=== PATIENT | female | born 1955 | race Caucasian/White ===

== ENCOUNTER 2019-12-10 21:18 | Emergency (ER) | payer MEDICARE, OTHER ==
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
[2019-12-11 02:14] VITALS: BP 178/74; PULSE 75
--- NOTE | 2019-12-11 07:46 | CR ---
[id number] RAD/RAD Knee Left 3V EXAM: RAD Knee Left 3V INDICATION: LEFT KNEE INJURY COMPARISON: October 05, 2011. DISCUSSION: Prepatellar soft tissue swelling. Mild to moderate patellofemoral and mild lateral compartment osteoarthritis. No acute fracture, joint effusion or dislocation is identified. IMPRESSION: 1. Prepatellar soft tissue swelling. No fracture is identified. Pedro Rowe MD 12/11/19 0745 Thank you for allowing us to participate in the care of your patient.
== END 2019-12-10 23:24 | disposition home or self-care (01) ==
LOC: VM.ED 21:18
DX: S80.02XA Contusion of left knee, initial encounter (principal); I10 Essential (primary) hypertension; Z88.5 Allergy status to narcotic agent; Z88.0 Allergy status to penicillin; Z88.2 Allergy status to sulfonamides; Z79.82 Long term (current) use of aspirin; Z79.899 Other long term (current) drug therapy; W19.XXXA Unspecified fall, initial encounter
CPT/HCPCS: 73562-LT; 99283; 99283-25

== ENCOUNTER 2020-01-23 07:28 | Day surgery (SDC) | payer MEDICARE, OTHER ==
[~2020-01-23 07:28] MED LIST: Lactated Ringers 1,000 ML IV SCH
[2020-01-23] MEDS ORDERED: Propofol 200 MG/20 ML SDV ONE ×3 (08:49→09:59)
[2020-01-23] MEDS ORDERED: Midazolam 1 MG/ML 2 ML SDV ONE (08:49)
[2020-01-23] MEDS ORDERED: fentaNYL 100 MCG/2 ML SDV ONE (08:49)
[2020-01-23 10:41] VITALS: BP 142/48; PULSE 81
--- NOTE | 2020-01-23 12:29 | OR ---
PREOPERATIVE DIAGNOSES: 1. Screening colonoscopy. 2. History of colon polyps. POSTOPERATIVE DIAGNOSIS: Colon polyps. PROCEDURE PERFORMED: Total flexible colonoscopy with biopsies. ANESTHESIA: MAC anesthesia. COMPLICATIONS: None apparent. BLOOD LOSS: Minimal. FINDINGS: 1. Sigmoid colon polyp, 4 mm, hot snare. 2. Cecal polyps x3, 5 mm/4 mm/2 mm, hot snare. 3. Ascending colon polyps x2, 2 mm/3 mm, cold forceps. 4. Splenic flexure polyp, 2 mm, cold forceps. 5. Sigmoid polyp, 4 mm, hot snare. START TIME: 0915. CECUM TIME: 0929. STOP TIME: 0956. BOWEL PREP: [place] class 3. INDICATION FOR PROCEDURE: Ms. Hernandez is a 64-year-old female who is here for a screening colonoscopy. Her last 1 was somewhere around 7 to 10 years ago. She did have polyps at that time. She currently denies bloody and dark black stools, and denies a family history of colon cancer. DETAILS OF PROCEDURE: After informed consent was obtained, the patient was brought to the procedure room, placed in left lateral decubitus position. MAC anesthesia was induced by Anesthesia colleagues. The colonoscope was introduced into the rectum and advanced all the way to the cecum. The appendiceal orifice and ileocecal valve were photographed. The colonoscope was then slowly withdrawn. No pathology was identified except for what is mentioned in the above findings section. A retroflexed view was obtained. She tolerated the procedure well and was awoken from MAC anesthesia by Anesthesia colleagues without incident. PATHOLOGY: A) Colon, sigmoid polyp Tubular adenoma B) Colon, cecal polyps x3 Tubular adenomas C) Colon, ascending polyps x3 Tubular adenomas D) Colon, splenic flexure polyp Tubular adenoma C) Colon, sigmoid polyp Tubular adenoma Recommend repeat screening colonoscopy in 3 years. RKM: 01/23/2020 10:16:11 MODL: 01/23/2020 10:42:38 /[id number] ARSLAN
--- NOTE | 2020-02-03 14:37 | LETTER ---
02/03/2020 RE: MANDY MEY VENCES : 1955 Mandy Vences [address] [place] [id number] Dear David: I write to inform you of the pathology results from your recent colonoscopy. You had 9 tubular adenomas. A tubular adenoma is a polyp which does not contain cancer, but it can become cancer which is why we removed them. Due to the large number of polyps, you will need a repeat screening colonoscopy in 3 years. Warmest regards,
== END 2020-01-23 10:40 | disposition home or self-care (01) ==
LOC: VM.SDS 07:28
PROVIDERS: ATTEND Student in an Organized Health Care Education/Training Program
DX: Z12.11 Encounter for screening for malignant neoplasm of colon (principal); D12.5 Benign neoplasm of sigmoid colon; D12.0 Benign neoplasm of cecum; D12.3 Benign neoplasm of transverse colon; D12.2 Benign neoplasm of ascending colon; F41.9 Anxiety disorder, unspecified; F32.9 Major depressive disorder, single episode, unspecified; I10 Essential (primary) hypertension; E66.9 Obesity, unspecified; E11.9 Type 2 diabetes mellitus without complications; F17.210 Nicotine dependence, cigarettes, uncomplicated; Z01.812 Encounter for preprocedural laboratory examination; Z20.828 Contact with and (suspected) exposure to other viral communicable diseases; Z79.899 Other long term (current) drug therapy; Z88.5 Allergy status to narcotic agent; Z88.0 Allergy status to penicillin; Z79.82 Long term (current) use of aspirin; Z88.2 Allergy status to sulfonamides; Z98.890 Other specified postprocedural states; Z90.49 Acquired absence of other specified parts of digestive tract; Z68.26 Body mass index [BMI] 26.0-26.9, adult
CPT/HCPCS: 00811; 88305; J2250; J2704; J3010; J7120; U0002

== ENCOUNTER 2020-10-11 12:18 | Emergency (ER) | payer MEDICARE, OTHER ==
[2020-10-11] MEDS ORDERED: methylPREDNISolone Sodium Succinate 125 MG/2 ML SDV IVPUSH ONE (12:28)
[2020-10-11] MEDS ORDERED: diphenhydrAMINE 50 MG/ML SDV IVPUSH ONE (12:29)
[2020-10-11] MEDS ORDERED: Famotidine 20 MG/2 ML SDV IVPUSH ONE (12:29)
[2020-10-11] MEDS ORDERED: Sodium Chloride 0.9% 10 ML Syringe FLUSH PRN (12:30)
[2020-10-11] MEDS ORDERED: EPINEPHrine 1 MG/1 ML Amp IM ONE (12:38)
[2020-10-11 12:57] VITALS: BP 161/46; PULSE 78
--- NOTE | 2020-10-11 14:59 | EDM.PDOC ---
ED HPI GENERAL MEDICAL PROBLEM - General Chief Complaint: Bite:Animal, Insect Stated Complaint: BEE STING Time Seen by Provider: 10/11/20 12:25 Source of Information: Reports: Patient History Limitations: Reports: No Limitations - History of Present Illness INITIAL COMMENTS - FREE TEXT/NARRATIVE: Pt. states that she was stung by a bee or wasp yesterday at about 4 PM. She states that gradually she has noticed increased swelling, erythema, and discomfort to her face and neck. She denies any shortness of breath. She denies any stridor. No troubles breathing or swallowing. Pt. states that she has an established history of allergies to bee stings in the past. She has never had an actual anaphylactic reaction, but has had some delayed reaction to stings. Face/Facial Pain Score (Numeric/FACES): 8 - Related Data Allergies Allergy/AdvReac Type Severity Reaction Status Date / Time codeine Allergy Difficulty Verified 10/11/20 12:51 Breathing Penicillins Allergy Hives Verified 10/11/20 12:51 Sulfa (Sulfonamide Allergy Difficulty Verified 10/11/20 12:51 Antibiotics) Breathing Home Meds: Home Meds Alendronate Sodium [Fosamax] 70 mg PO Q7D 03/03/15 [History] Aspirin 81 mg PO BEDTIME 03/03/15 [History] Multivitamin [Daily Multiple Vitamin] 1 tab PO DAILY 03/03/15 [History] tiZANidine [Zanaflex] 2 - 4 mg PO BEDTIME 03/03/15 [History] Calcium Citrate/Vitamin D3 [Calcium Citrate - Vit D Caplet] 1 each PO BID 01/09/20 [History] Escitalopram Oxalate [Lexapro] 10 mg PO DAILY 01/09/20 [History] Ferrous Sulfate [Iron] 325 mg PO ASDIRECTED 01/09/20 [History] amLODIPine Besylate [Norvasc] 2.5 mg PO DAILY 01/09/20 [History] busPIRone [Buspar] 10 mg PO BID 01/09/20 [History] lisinopriL [Lisinopril] 40 mg PO DAILY 01/09/20 [History] Past Medical History Cardiovascular History: Reports: Hypertension Musculoskeletal History: Reports: Arthritis, Back Pain, Chronic, Osteoporosis, Other (See Below) Other Musculoskeletal History: osteoarthritis of spine, radicular pain of thoracic region Neurological History: Reports: Other (See Below) Other Neuro History: spinal stenosis, lumbar region; thorasic radicular pain Psychiatric History: Reports: Depression Endocrine/Metabolic History: Reports: Obesity/BMI 30+, Other (See Below) Other Endocrine/Metabolic History: starvation ketoacidosis Hematologic History: Reports: B12 Deficiency, Other (See Below) Other Hematologic History: starvation ketoacidosis Dermatologic History: Reports: Urticaria - Past Surgical History HEENT Surgical History: Reports: Tonsillectomy GI Surgical History: Reports: Appendectomy, Bariatric Procedure, Cholecystectomy, Colonoscopy, EGD, Hernia Repair/Other, Other (See Below) Other GI Surgeries/Procedures: abdominoplasty, cosmetic surgery arms and tummy Female Surgical History: Reports: Breast Reduction, Hysterectomy Neurological Surgical History: Reports: C-Spine, Lumbar Spine Musculoskeletal Surgical History: Reports: Other (See Below) Other Musculoskeletal Surgeries/Procedures:: Fusion of thoracic, cervical, and lumbar spine, excision foot mass bone spur Social & Family History - Family History Family Medical History: No Pertinent Family History - Tobacco Use Tobacco Use Status *Q: Current Some Day Tobacco User Years of Tobacco use: 40 Packs/Tins Daily: 0.3 ED ROS GENERAL - Review of Systems Review Of Systems: Comprehensive ROS is negative, except as noted in HPI. ED EXAM, ANIMAL BITE - Physical Exam Exam: See Below Exam Limited By: No Limitations General Appearance: Alert, WD/WN, No Apparent Distress Throat/Mouth: Normal Lips, Normal Teeth, Normal Oropharynx, Normal Voice, No Airway Compromise, Other (mild facial erythema noted.) Neck: Supple, Other (Erythema noted to anterior neck and lower jaw). No: Lymphadenopathy (L), Lymphadenopathy (R) Respiratory/Chest: No Respiratory Distress, Lungs Clear, Normal Breath Sounds, No Accessory Muscle Use, Chest Non-Tender Cardiovascular: Normal Peripheral Pulses, Regular Rate, Rhythm, No Edema, No Gallop, No JVD, No Murmur, No Rub Course - Vital Signs Last Recorded V/S: Last Vital Signs Temp 37.0 C 10/11/20 12:20 Pulse 78 10/11/20 12:20 Resp 16 10/11/20 12:20 BP 161/46 H 10/11/20 12:20 Pulse Ox 100 10/11/20 12:20 - Orders/Labs/Meds Orders: Active Orders 24 hr Category Date Time Status Peripheral IV Insertion Adult [OM.PC] Routine Oth 10/11/20 12:30 Ordered Meds: Medications Discontinued Medications Generic Name Dose Route Start Last Admin Trade Name Tal PRN Reason Stop Dose Admin Diphenhydramine HCl 50 mg 10/11/20 12:29 10/11/20 12:39 Diphenhydramine 50 Mg/Ml Sdv IVPUSH 10/11/20 12:30 50 mg ONETIME ONE Administration Epinephrine HCl 0.5 mg 10/11/20 12:38 10/11/20 12:25 Epinephrine 1 Mg/1 Ml Amp IM 10/11/20 12:39 0.5 mg ONETIME ONE Administration Famotidine 20 mg 10/11/20 12:29 10/11/20 12:39 Famotidine 20 Mg/2 Ml Sdv IVPUSH 10/11/20 12:30 20 mg ONETIME ONE Administration Methylprednisolone Sodium Succinate 125 mg 10/11/20 12:28 10/11/20 12:39 Methylprednisolone Sodium Succinate 125 Mg/2 Ml Sdv IVPUSH 10/11/20 12:29 125 mg ONETIME ONE Administration Sodium Chloride 10 ml 10/11/20 12:30 Sodium Chloride 0.9% 10 Ml Syringe FLUSH ASDIRECTED PRN Keep Vein Open - Re-Assessments/Exams Free Text/Narrative Re-Assessment/Exam: 10/11/20 15:00 Pt. reported significant improvement after receiving SQ epi and benadryl, solu medrol, and pepcid IV. She was observed. Erythema did start to improve. She remained stable in my care in ER. Departure - Departure Time of Disposition: 13:45 Disposition: Home, Self-Care 01 Clinical Impression: Allergic reaction - Discharge Information Instructions: Allergies, Adult, [id number], Prednisone tablets Referrals: Jonna Delaney MD [Primary Care Provider] - Forms: ED Department Discharge Additional Instructions: Prednisone 20mg 2 tabs daily for 7 days Benadryl 25mg 2 tabs every 4-6 hours as needed for throat itching/irritation. This may make you sleepy, so use caution operating machinery. I did give you a script for an epi pen as well, due to the severity of this reaction. Recheck in clinic in 5-7 days. Sepsis Event Note (ED) - Evaluation Sepsis Screening Result: No Definite Risk - Focused Exam Vital Signs: Vital Signs Temp Pulse Resp BP Pulse Ox 10/11/20 12:20 37.0 C 78 16 161/46 H 100 - Problem List Review Problem List Initiated/Reviewed/Updated: Yes - My Orders Last 24 Hours: My Active Orders 10/11/20 12:30 Peripheral IV Insertion Adult [OM.PC] Routine - Assessment/Plan Last 24 Hours: My Active Orders 10/11/20 12:30 Peripheral IV Insertion Adult [OM.PC] Routine Plan: Prednisone 20mg 2 tabs daily for 7 days Benadryl 25mg 2 tabs every 4-6 hours as needed for throat itching/irritation. This may make you sleepy, so use caution operating machinery. I did give you a script for an epi pen as well, due to the severity of this reaction. Recheck in clinic in 5-7 days.
== END 2020-10-11 13:10 | disposition home or self-care (01) ==
LOC: VM.ED 12:18
DX: T63.441A Toxic effect of venom of bees, accidental (unintentional), initial encounter (principal); I10 Essential (primary) hypertension; E66.9 Obesity, unspecified; Z68.21 Body mass index [BMI] 21.0-21.9, adult; Z79.82 Long term (current) use of aspirin; Z72.0 Tobacco use; Z88.5 Allergy status to narcotic agent; Z88.0 Allergy status to penicillin; Z88.2 Allergy status to sulfonamides; Z79.899 Other long term (current) drug therapy
CPT/HCPCS: 96372; 96374; 96375; 99282-25; 99283; J0171; J1200; J2930; J3490

== ENCOUNTER 2020-12-25 19:33 | Emergency (ER) | payer MEDICARE, OTHER ==
[2020-12-25] MEDS ORDERED: Sodium Chloride 0.9% 10 ML Syringe FLUSH PRN (19:36)
[2020-12-25] MEDS ORDERED: HYDROmorphone 1 MG/ML Syringe IVPUSH ONE (19:37)
[2020-12-25] MEDS ORDERED: Ondansetron 4 MG/2 ML SDV IVPUSH ONE (19:37)
[2020-12-25] MEDS ORDERED: Sodium Chloride 0.9% 1,000 ML IV SCH (19:45)
[2020-12-25 20:12] LABS: PTT,PARTIAL THROMBOPLSTIN TIME 24.1 SEC (25.6-32.8)
[2020-12-25 20:17] LABS: CHLORIDE,CL 97 mmol/L (98-107); SODIUM,NA 131 mmol/L (136-145)
[2020-12-25 20:19] LABS: ANION GAP 17.2 mmol/L (5-15)
[2020-12-25 21:04] VITALS: BP 161/78; PULSE 112
--- NOTE | 2020-12-25 21:22 | EDM.PDOC ---
ED HPI GENERAL MEDICAL PROBLEM - General Chief Complaint: Abdominal Pain Stated Complaint: STOMACH PAIN Time Seen by Provider: 12/25/20 19:33 Source of Information: Reports: Patient History Limitations: Reports: No Limitations - History of Present Illness INITIAL COMMENTS - FREE TEXT/NARRATIVE: Pt. presents to ER with complaints of severe LUQ abdominal pain. Pt. states that the discomfort was rapid in onset. Denies any fever or chills. She is not sure if she has had her appendix or gallbladder out but has had a gastric bypass. Pt. denies any recent illness. No cough or congestion. No sore throat or rhinorrhea. She denies any melena, hematochezia, or hematemesis. Onset: Today Location: Reports: Abdomen Quality: Reports: Sharp Left Upper Abdomen Pain Score (Numeric/FACES): 10 - Related Data Allergies Allergy/AdvReac Type Severity Reaction Status Date / Time codeine Allergy Difficulty Verified 10/11/20 12:51 Breathing Penicillins Allergy Hives Verified 10/11/20 12:51 Sulfa (Sulfonamide Allergy Difficulty Verified 10/11/20 12:51 Antibiotics) Breathing Home Meds: Home Meds Alendronate Sodium [Fosamax] 70 mg PO Q7D 03/03/15 [History] Aspirin 81 mg PO BEDTIME 03/03/15 [History] Multivitamin [Daily Multiple Vitamin] 1 tab PO DAILY 03/03/15 [History] tiZANidine [Zanaflex] 2 - 4 mg PO BEDTIME 03/03/15 [History] Calcium Citrate/Vitamin D3 [Calcium Citrate - Vit D Caplet] 1 each PO BID 01/09/20 [History] Escitalopram Oxalate [Lexapro] 10 mg PO DAILY 01/09/20 [History] Ferrous Sulfate [Iron] 325 mg PO ASDIRECTED 01/09/20 [History] amLODIPine Besylate [Norvasc] 2.5 mg PO DAILY 01/09/20 [History] busPIRone [Buspar] 10 mg PO BID 01/09/20 [History] lisinopriL [Lisinopril] 40 mg PO DAILY 01/09/20 [History] Past Medical History Cardiovascular History: Reports: Hypertension Musculoskeletal History: Reports: Arthritis, Back Pain, Chronic, Osteoporosis, Other (See Below) Other Musculoskeletal History: osteoarthritis of spine, radicular pain of thoracic region Neurological History: Reports: Other (See Below) Other Neuro History: spinal stenosis, lumbar region; thorasic radicular pain Psychiatric History: Reports: Depression Endocrine/Metabolic History: Reports: Obesity/BMI 30+, Other (See Below) Other Endocrine/Metabolic History: starvation ketoacidosis Hematologic History: Reports: B12 Deficiency, Other (See Below) Other Hematologic History: starvation ketoacidosis Dermatologic History: Reports: Urticaria - Past Surgical History HEENT Surgical History: Reports: Tonsillectomy GI Surgical History: Reports: Appendectomy, Bariatric Procedure, Cholecystectomy, Colonoscopy, EGD, Hernia Repair/Other, Other (See Below) Other GI Surgeries/Procedures: abdominoplasty, cosmetic surgery arms and tummy Female Surgical History: Reports: Breast Reduction, Hysterectomy Neurological Surgical History: Reports: C-Spine, Lumbar Spine Musculoskeletal Surgical History: Reports: Other (See Below) Other Musculoskeletal Surgeries/Procedures:: Fusion of thoracic, cervical, and lumbar spine, excision foot mass bone spur Social & Family History - Family History Family Medical History: No Pertinent Family History ED ROS GENERAL - Review of Systems Review Of Systems: See Below Constitutional: Reports: No Symptoms HEENT: Reports: No Symptoms Respiratory: Reports: No Symptoms Cardiovascular: Reports: No Symptoms Endocrine: Reports: No Symptoms GI/Abdominal: Reports: Abdominal Pain : Reports: No Symptoms Musculoskeletal: Reports: No Symptoms Skin: Reports: No Symptoms Neurological: Reports: No Symptoms Psychiatric: Reports: No Symptoms Hematologic/Lymphatic: Reports: No Symptoms Immunologic: Reports: No Symptoms ED EXAM, GENERAL - Physical Exam Exam: See Below Exam Limited By: No Limitations General Appearance: Alert, WD/WN, No Apparent Distress GI/Abdominal: No Organomegaly, No Distention, Tender, Mass (Pt. reports feeling a mass in LUQ that is resolving.). No: Rebound, Hepatomegaly Back Exam: Normal Inspection, Full Range of Motion Extremities: Normal Inspection, Normal Range of Motion, Non-Tender Neurological: Alert, Oriented, CN II-XII Intact, Normal Cognition, Normal Gait Psychiatric: Normal Affect, Normal Mood Skin Exam: Warm, Dry, Intact, Normal Color, No Rash Course - Vital Signs Last Recorded V/S: Last Vital Signs Temp 37.0 C 12/25/20 19:33 Pulse 112 H 12/25/20 19:33 Resp 20 12/25/20 19:33 BP 161/78 H 12/25/20 19:33 Pulse Ox 95 12/25/20 19:33 - Orders/Labs/Meds Orders: Active Orders 24 hr Category Date Time Status EKG Documentation Completion [RC] STAT Care 12/25/20 19:36 Active Abdomen 2V AP Flat Upright [CR] Stat Exams 12/25/20 20:18 Ordered Sodium Chloride 0.9% [Normal Saline] 1,000 ml Med 12/25/20 19:45 Active IV ASDIRECTED Sodium Chloride 0.9% [Saline Flush] Med 12/25/20 19:36 Active 10 ml FLUSH ASDIRECTED PRN Peripheral IV Insertion Adult [OM.PC] Routine Oth 12/25/20 19:36 Ordered Medication Orders Sodium Chloride (Normal Saline) 1,000 mls @ 1,000 mls/hr IV ASDIRECTED ALEXA Sodium Chloride (Sodium Chloride 0.9% 10 Ml Syringe) 10 ml FLUSH ASDIRECTED PRN PRN Reason: Keep Vein Open Labs: Laboratory Tests 12/25/20 12/25/20 12/25/20 Range/Units 19:35 19:35 19:35 WBC 10.3 H (4.0-10.0) x10^3/uL RBC 4.19 (4.00-5.50) x10^6/uL Hgb 13.2 (12.0-16.0) g/dL Hct 37.9 (33.0-47.0) % MCV 90.5 (78.0-93.0) fL MCH 31.5 (26.0-32.0) pg MCHC 34.8 (32.0-36.0) g/dL RDW Coeff of Tricia 12.2 (10.0-15.0) % Plt Count 308 (130-400) x10^3/uL Immature Gran % (Auto) 0.20 (0.00-0.43) % Neut % (Auto) 62.8 (50.0-80.0) % Lymph % (Auto) 26.5 (25.0-50.0) % [place] % (Auto) 8.4 (2.0-11.0) % Eos % (Auto) 1.7 (0.0-4.0) % Baso % (Auto) 0.4 (0.2-1.2) % Neut # (Auto) 6.4 (1.8-7.7) x10^3/uL Lymph # (Auto) 2.7 (1.0-4.8) x10^3/uL [place] # (Auto) 0.9 H (0.0-0.8) x10^3/uL Eos # (Auto) 0.2 (0.0-0.5) x10^3/uL Baso # (Auto) 0.0 (0.0-0.2) x10^3/uL Immature Gran # (Auto) 0.02 (0.00-0.07) x10^3/uL PT 9.9 (9.9-12.5) SEC INR 0.9 L (2.0-3.5) APTT 24.1 L (25.6-32.8) SEC Sodium 131 L (136-145) mmol/L Potassium 4.2 (3.5-5.1) mmol/L Chloride 97 L (98-107) mmol/L Carbon Dioxide 21 (21-32) mmol/L Anion Gap 17.2 H (5-15) mmol/L BUN 17 (7-18) mg/dL Creatinine 0.9 (0.55-1.02) mg/dL Est Cr Clr Drug Dosing TNP Estimated GFR (MDRD) > 60 Glucose 107 H (70-99) mg/dL Calcium 9.0 (8.5-10.1) mg/dL Corrected Calcium 9.2 (8.5-10.1) mg/dL Phosphorus 4.1 (2.6-4.7) mg/dL Magnesium 2.0 (1.8-2.4) mg/dL Total Bilirubin 0.4 (0.2-1.0) mg/dL AST 18 (15-37) U/L ALT 30 (14-59) U/L Alkaline Phosphatase 148 H (46-116) U/L Troponin I High Sens 9 (<=51) ng/L C-Reactive Protein < 0.2 (<=0.9) mg/dL Total Protein 7.4 (6.4-8.2) g/dL Albumin 3.8 (3.4-5.0) g/dL Globulin 3.6 Albumin/Globulin Ratio 1.06 Urine Color (YELLOW) Urine Appearance (CLEAR) Urine pH (5.0-8.0) Ur Specific [place] Urine Protein (NEGATIVE) mg/dL Urine Glucose (UA) (NEGATIVE) mg/dL Urine Ketones (NEGATIVE) mg/dL Urine Occult Blood (NEGATIVE) Urine Nitrite (NEGATIVE) Urine Bilirubin (NEGATIVE) Urine Urobilinogen (0.2) EU/dL Ur Leukocyte Esterase (NEGATIVE) 12/25/20 Range/Units 20:50 WBC (4.0-10.0) x10^3/uL RBC (4.00-5.50) x10^6/uL Hgb (12.0-16.0) g/dL Hct (33.0-47.0) % MCV (78.0-93.0) fL MCH (26.0-32.0) pg MCHC (32.0-36.0) g/dL RDW Coeff of Tricia (10.0-15.0) % Plt Count (130-400) x10^3/uL Immature Gran % (Auto) (0.00-0.43) % Neut % (Auto) (50.0-80.0) % Lymph % (Auto) (25.0-50.0) % [place] % (Auto) (2.0-11.0) % Eos % (Auto) (0.0-4.0) % Baso % (Auto) (0.2-1.2) % Neut # (Auto) (1.8-7.7) x10^3/uL Lymph # (Auto) (1.0-4.8) x10^3/uL [place] # (Auto) (0.0-0.8) x10^3/uL Eos # (Auto) (0.0-0.5) x10^3/uL Baso # (Auto) (0.0-0.2) x10^3/uL Immature Gran # (Auto) (0.00-0.07) x10^3/uL PT (9.9-12.5) SEC INR (2.0-3.5) APTT (25.6-32.8) SEC Sodium (136-145) mmol/L Potassium (3.5-5.1) mmol/L Chloride (98-107) mmol/L Carbon Dioxide (21-32) mmol/L Anion Gap (5-15) mmol/L BUN (7-18) mg/dL Creatinine (0.55-1.02) mg/dL Est Cr Clr Drug Dosing Estimated GFR (MDRD) Glucose (70-99) mg/dL Calcium (8.5-10.1) mg/dL Corrected Calcium (8.5-10.1) mg/dL Phosphorus (2.6-4.7) mg/dL Magnesium (1.8-2.4) mg/dL Total Bilirubin (0.2-1.0) mg/dL AST (15-37) U/L ALT (14-59) U/L Alkaline Phosphatase (46-116) U/L Troponin I High Sens (<=51) ng/L C-Reactive Protein (<=0.9) mg/dL Total Protein (6.4-8.2) g/dL Albumin (3.4-5.0) g/dL Globulin Albumin/Globulin Ratio Urine Color Yellow (YELLOW) Urine Appearance Clear (CLEAR) Urine pH 5.5 (5.0-8.0) Ur Specific [place] 1.020 Urine Protein Negative (NEGATIVE) mg/dL Urine Glucose (UA) Negative (NEGATIVE) mg/dL Urine Ketones Negative (NEGATIVE) mg/dL Urine Occult Blood Negative (NEGATIVE) Urine Nitrite Negative (NEGATIVE) Urine Bilirubin Negative (NEGATIVE) Urine Urobilinogen 0.2 (0.2) EU/dL Ur Leukocyte Esterase Negative (NEGATIVE) Meds: Medications Generic Name Dose Route Start Last Admin Trade Name Freq PRN Reason Stop Dose Admin Sodium Chloride 1,000 mls @ 1,000 mls/hr 12/25/20 19:45 Normal Saline IV ASDIRECTED ALEXA Sodium Chloride 10 ml 12/25/20 19:36 Sodium Chloride 0.9% 10 Ml Syringe FLUSH ASDIRECTED PRN Keep Vein Open Discontinued Medications Generic Name Dose Route Start Last Admin Trade Name Freq PRN Reason Stop Dose Admin Hydromorphone HCl 1 mg 12/25/20 19:37 Hydromorphone 1 Mg/Ml Syringe IVPUSH 12/25/20 19:38 ONETIME ONE Ondansetron HCl 4 mg 12/25/20 19:37 Ondansetron 4 Mg/2 Ml Sdv IVPUSH 12/25/20 19:38 ONETIME ONE Departure - Departure Time of Disposition: 21:25 Disposition: DC/Tfer to Acute Hospital 02 Clinical Impression: Abdominal pain - Discharge Information Referrals: Jonna Delaney MD [Primary Care Provider] - Forms: ED Department Discharge Sepsis Event Note (ED) - Evaluation Sepsis Screening Result: No Definite Risk - Focused Exam Vital Signs: Vital Signs Temp Pulse Resp BP Pulse Ox 12/25/20 19:33 37.0 C 112 H 20 161/78 H 95 - Problem List Review Problem List Initiated/Reviewed/Updated: Yes - My Orders Last 24 Hours: My Active Orders 12/25/20 19:36 EKG Documentation Completion [RC] STAT Sodium Chloride 0.9% [Saline Flush] 10 ml FLUSH ASDIRECTED PRN Peripheral IV Insertion Adult [OM.PC] Routine 12/25/20 19:45 Sodium Chloride 0.9% [Normal Saline] 1,000 ml IV ASDIRECTED 12/25/20 20:18 Abdomen 2V AP Flat Upright [CR] Stat - Assessment/Plan Last 24 Hours: My Active Orders 12/25/20 19:36 EKG Documentation Completion [RC] STAT Sodium Chloride 0.9% [Saline Flush] 10 ml FLUSH ASDIRECTED PRN Peripheral IV Insertion Adult [OM.PC] Routine 12/25/20 19:45 Sodium Chloride 0.9% [Normal Saline] 1,000 ml IV ASDIRECTED 12/25/20 20:18 Abdomen 2V AP Flat Upright [CR] Stat Plan: [place]. [place] via [place] [facility] [place]. We do not have the ability to do CT of the abdomen this weekend due to staffing. All pertinent info was sent with pt. IV kept in place. Pt. accepted by Dr. Hernadez.
--- NOTE | 2020-12-26 10:28 | CR ---
[id number] RAD/RAD Abd Flat and Upright 2V EXAM: RAD Abd Flat and Upright 2V INDICATION: ABDOMINAL PAIN COMPARISON: None. Discussion/Impression: Gas filled loops of mildly distended and dilated small bowel in the left upper abdomen air-fluid levels on the upright view. There is however gas in the colon with air-fluid levels as well. Findings are nonspecific and can be seen with enterocolitis or partial small bowel obstruction. CT examination of the abdomen/pelvis with intravenous and oral contrast is recommended. Kyaw Wallace MD 12/26/20 1026 Thank you for allowing us to participate in the care of your patient.
== END 2020-12-25 21:55 | disposition short-term general hospital (02) ==
LOC: VM.ED 19:33
DX: R10.12 Left upper quadrant pain (principal); M19.90 Unspecified osteoarthritis, unspecified site; E66.9 Obesity, unspecified; I10 Essential (primary) hypertension; Z68.24 Body mass index [BMI] 24.0-24.9, adult; Z88.0 Allergy status to penicillin; Z88.5 Allergy status to narcotic agent; Z88.2 Allergy status to sulfonamides; Z79.82 Long term (current) use of aspirin; Z79.899 Other long term (current) drug therapy
CPT/HCPCS: 74019; 80053; 81003; 83735; 84100; 84484; 85025; 85610; 85730; 86140; 96374; 96375; 99285-25; J1170; J2405; J7030

== ENCOUNTER 2021-01-13 10:10 | Day surgery (SDC) | payer MEDICARE, OTHER ==
[~2021-01-13 10:10] MED LIST changes: +Sodium Chloride 0.9% 10 ML Syringe FLUSH PRN
[2021-01-13] MEDS ORDERED: Propofol 200 MG/20 ML SDV ONE (12:22)
[2021-01-13] MEDS ORDERED: fentaNYL 100 MCG/2 ML SDV ONE (12:22)
[2021-01-13 13:52] VITALS: BP 130/48; PULSE 61
--- NOTE | 2021-01-14 08:17 | OR ---
PREOPERATIVE DIAGNOSES: 1. Weight loss with early satiety. 2. Epigastric pain. 3. Status post gastric bypass in 2000. 4. The patient's risk factors include half pack per day smoking and rare alcohol intake. The patient denies any NSAIDs. She is on aspirin 81 mg daily. She does take iron supplement every other day. No dysphagia symptoms noted. She is currently taking Protonix 40 mg twice a day. POSTOPERATIVE DIAGNOSES: 1. Mild gastritis of the small gastric pouch. Cold biopsy x2 bites taken for path and Helicobacter pylori. 2. Mild distal esophagitis with no worrisome-appearing tissue. 3. Normal gastrojejunal loop. Cold biopsies taken of the jejunum given her diarrhea symptoms. PROCEDURE: Esophagogastroduodenoscopy with cold biopsy x2 sites (gastric pouch and jejunum). SURGEON: Nasir Eid M.D. ANESTHESIA: Monitored anesthesia care. DESCRIPTION OF PROCEDURE: Ting is a 65-year-old female who was brought to the endoscope suite after discussion of risks and benefits (including but not limited to reaction to medication, bleeding, infection, aspiration, perforation). Informed consent was obtained for monitored anesthesia care and esophagogastroduodenoscopy along with possible biopsy and/or dilatation. Pre-procedure exam including oral cavity was unremarkable except for partial dentures. She is missing a tooth. IV, oxygen, and monitors were placed. Patient was placed in the left lateral position and sedation was administered. A bite block was placed gently and scope lightly lubricated and passed through the bite block and over the tongue. Hypopharynx and vocal cords were visualized and unremarkable. It was difficult to get a good picture of the vocal cords. Scope was passed through the cricopharynx and into the esophagus. The scope was then passed through the distal esophagus and the GE junction was visualized and photographed. The GE junction was remarkable for mild distal esophagitis. The scope was advanced into the gastric pouch and some gastric fluid was suctioned. The gastrojejunal loop was normal in appearance. Cold biopsy x2 bites taken of the jejunum. The scope was brought back into the stomach pouch and the biopsies were taken of the gastric pouch. Biopsies were done for path and H pylori from the gastric pouch. Stomach pouch was desufflated of air and then the scope was slowly withdrawn and the esophagus closely visualized during withdrawal all the way to the posterior pharynx. This was unremarkable. The patient tolerated the procedure well and went to recovery in stable condition. The patient was monitored until at baseline status. Findings and discharge instructions were reviewed and the patient was discharged in good condition. COMPLICATIONS: None. TOTAL TIME: 8 minutes. ESTIMATED BLOOD LOSS: 1 to 2 mL. RECOMMENDATIONS/FOLLOW-UP: The patient can continue on her pantoprazole 40 mg either once daily or twice daily. Some of her loose stools may be caused by PPI use. She can discuss this with PCP. We will send letter with biopsy results from the gastric pouch and jejunum. I did not see any worrisome findings on this procedure. We did discuss risk factor modifications including smoking cessation and limiting alcohol intake. I would like to kindly thank Dr. Delaney for this referral. DMB: 01/13/2021 14:06:44 MODL: 01/13/2021 15:06:43 /[id number]
== END 2021-01-13 14:30 | disposition home or self-care (01) ==
LOC: VM.SDS 10:10
PROVIDERS: ATTEND Family Medicine
DX: K29.70 Gastritis, unspecified, without bleeding (principal); K20.90 Esophagitis, unspecified without bleeding; R68.81 Early satiety; I10 Essential (primary) hypertension; M81.0 Age-related osteoporosis without current pathological fracture; E53.8 Deficiency of other specified B group vitamins; R63.4 Abnormal weight loss; E11.9 Type 2 diabetes mellitus without complications; F17.210 Nicotine dependence, cigarettes, uncomplicated; Z98.890 Other specified postprocedural states; Z90.49 Acquired absence of other specified parts of digestive tract; Z98.84 Bariatric surgery status; Z79.899 Other long term (current) drug therapy; Z79.82 Long term (current) use of aspirin; Z88.0 Allergy status to penicillin; Z88.5 Allergy status to narcotic agent; Z88.2 Allergy status to sulfonamides
CPT/HCPCS: 00731; 88305; 88342; J2704; J3010; J7120

== ENCOUNTER 2021-03-10 08:15 | Day surgery (SDC) | payer MEDICARE, OTHER ==
[2021-03-10] MEDS: Lactated Ringers 1,000 ML IV SCH (08:42)
[2021-03-10] MEDS ORDERED: Propofol 200 MG/20 ML SDV ONE ×2 (09:44→09:58)
[2021-03-10] MEDS ORDERED: fentaNYL 100 MCG/2 ML SDV ONE (09:44)
[2021-03-10 12:23] VITALS: BP 122/47; PULSE 70
== END 2021-03-10 12:50 | disposition home or self-care (01) ==
LOC: VM.SDS 08:15
PROVIDERS: ATTEND Family Medicine
DX: K52.9 Noninfective gastroenteritis and colitis, unspecified (principal); R63.4 Abnormal weight loss; I10 Essential (primary) hypertension; E53.8 Deficiency of other specified B group vitamins; M48.061 Spinal stenosis, lumbar region without neurogenic claudication; M81.0 Age-related osteoporosis without current pathological fracture; Z98.84 Bariatric surgery status; Z98.890 Other specified postprocedural states; Z79.899 Other long term (current) drug therapy; Z79.82 Long term (current) use of aspirin; Z88.0 Allergy status to penicillin; Z88.5 Allergy status to narcotic agent; Z88.2 Allergy status to sulfonamides; Z90.49 Acquired absence of other specified parts of digestive tract; Z87.891 Personal history of nicotine dependence
CPT/HCPCS: 00811; 88305; J2704; J3010; J7120

== ENCOUNTER 2023-04-23 15:41 | Emergency (ER) | payer MEDICARE, OTHER ==
[2023-04-23] MEDS ORDERED: Sodium Chloride 0.9% 10 ML Syringe FLUSH PRN (15:43)
[2023-04-23 15:58] LABS: BASOPHILS PERCENT AUTO 0.5 % (0.2-1.2); EOSINOPHILS ABSOLUTE AUTO 0.1 x10^3/uL (0.0-0.5); EOSINOPHILS PERCENT AUTO 1.4 % (0.0-4.0); HEMATOCRIT 40.1 % (33.0-47.0); HEMOGLOBIN 13.5 g/dL (12.0-16.0); IMMATURE GRAN ABSOLUTE AUTO 0.03 x10^3/uL (0.00-0.07); LYMPHOCYTES ABSOLUTE AUTO 1.5 x10^3/uL (1.0-4.8); LYMPHOCYTES PERCENT AUTO 17.5 % (25.0-50.0); MEAN CORPUSCULAR HEMOGLOBIN 32.7 pg (26.0-32.0); MEAN CORPUSCULAR HGB CONC 33.7 g/dL (32.0-36.0); MEAN CORPUSCULAR VOLUME 97.1 fL (78.0-93.0); MONOCYTES ABSOLUTE AUTO 0.5 x10^3/uL (0.0-0.8); MONOCYTES PERCENT AUTO 5.3 % (2.0-11.0); NEUTROPHILS ABSOLUTE AUTO 6.6 x10^3/uL (1.8-7.7); PLATELET COUNT,PLT 243 x10^3/uL (130-400); RED BLOOD CELL COUNT 4.13 x10^6/uL (4.00-5.50); WHITE BLOOD CELL COUNT,WBC 8.7 x10^3/uL (4.0-10.0)
[2023-04-23 16:12] LABS: PROTHROMBIN TIME 9.7 SEC (8.9-11.5); PTT,PARTIAL THROMBOPLSTIN TIME 24.8 SEC (21.9-33.8)
[2023-04-23 16:15] LABS: LACTIC ACID 0.9 mmol/L (0.4-2.0)
[2023-04-23] MEDS: Meclizine 25 MG Tab PO ONE (16:15)
[2023-04-23] MEDS: Lactated Ringers 1,000 ML IV ONE ×2 (16:15→17:24)
[2023-04-23] MEDS: Ondansetron 4 MG/2 ML SDV IVPUSH ONE (16:15)
[2023-04-23 16:22] LABS: A/G RATIO 1.06; ALANINE AMINOTRANSFERASE,ALT 61 U/L (14-59); ALBUMIN 3.6 g/dL (3.4-5.0); ALKALINE PHOSPHATASE 82 U/L (46-116); ANION GAP 15.4 mmol/L (5-15); ASPARTATE AMNIOTRANSFERASE,AST 52 U/L (15-37); BILIRUBIN TOTAL 0.2 mg/dL (0.2-1.0); BLOOD UREA NITROGEN,BUN 28 mg/dL (7-18); C-REACTIVE PROTEIN < 0.50 mg/dL (<=0.50); CALCIUM 8.9 mg/dL (8.5-10.1); CARBON DIOXIDE,CO2 25 mmol/L (21-32); CHLORIDE,CL 105 mmol/L (98-107); CREATININE 1.4 mg/dL (0.55-1.02); ESTIMATED GFR 41 mL/min (>=60); ETHANOL BLOOD MEDICAL < 3 mg/dL (0-3); GLUCOSE RANDOM 102 mg/dL (70-99); MAGNESIUM 2.1 mg/dL (1.8-2.4); POTASSIUM,K 4.4 mmol/L (3.5-5.1); SODIUM,NA 141 mmol/L (136-145); TSH ULTRASENSITIVE 1.092 uIU/mL (0.358-3.74)
[2023-04-23 17:22] LABS: APPEARANCE,URINE CLEAR (CLEAR); BILIRUBIN,URINE NEGATIVE (NEGATIVE); COLOR,URINE YELLOW (YELLOW); GLUCOSE,URINE NEGATIVE (NEGATIVE); KETONES,URINE NEGATIVE (NEGATIVE); LEUKOCYTE ESTERASE,URINE NEGATIVE (NEGATIVE); NITRITE,URINE NEGATIVE (NEGATIVE); OCCULT BLOOD,URINE NEGATIVE (NEGATIVE); PH,URINE 5.5 (5.0-8.0); PROTEIN,URINE NEGATIVE (NEGATIVE); UROBILINOGEN,URINE 0.2 EU/dL (0.2)
[2023-04-23 18:18] VITALS: BP 132/74; PULSE 60
== END 2023-04-23 18:08 | disposition home or self-care (01) ==
LOC: VM.ED 15:41
DX: N17.9 Acute kidney failure, unspecified (principal); E86.0 Dehydration; I10 Essential (primary) hypertension; E66.9 Obesity, unspecified; F17.200 Nicotine dependence, unspecified, uncomplicated; E78.5 Hyperlipidemia, unspecified; Z79.82 Long term (current) use of aspirin; Z79.899 Other long term (current) drug therapy; Z88.0 Allergy status to penicillin; Z88.2 Allergy status to sulfonamides; Z88.5 Allergy status to narcotic agent
CPT/HCPCS: 70450; 80053; 80307; 81003; 83605; 83735; 84443; 84484; 85025; 85610; 85730; 86140; 93005; 93010; 96361; 96374; 99284; 99285-25; A9270-GY; J2405; J7120

== ENCOUNTER 2023-06-19 21:59 | Emergency (ER) | payer MEDICARE, OTHER ==
[2023-06-19] MEDS: EPINEPHrine 1 MG/1 ML Amp IM ONE (22:40)
[2023-06-19] MEDS: Famotidine 20 MG/2 ML SDV IVPUSH ONE (22:50)
[2023-06-20 02:15] VITALS: PULSE 79
[2023-06-20 02:41] VITALS: BP 149/66
== END 2023-06-20 00:25 | disposition home or self-care (01) ==
LOC: VM.ED 21:59
DX: T88.6XXA Anaphylactic reaction due to adverse effect of correct drug or medicament properly administered, initial encounter (principal); T36.4X5A Adverse effect of tetracyclines, initial encounter; T38.0X5A Adverse effect of glucocorticoids and synthetic analogues, initial encounter; I10 Essential (primary) hypertension; Z88.5 Allergy status to narcotic agent; Z88.0 Allergy status to penicillin; Z88.2 Allergy status to sulfonamides; Z79.82 Long term (current) use of aspirin; Z79.899 Other long term (current) drug therapy; Z90.49 Acquired absence of other specified parts of digestive tract
CPT/HCPCS: 96372; 96374; 99284-25; 99285; J0171; J3490